=== PATIENT | female | born 1965 | race Caucasian/White ===

== ENCOUNTER 2021-07-07 14:08 | Emergency (ER) | payer BC ==
[~2021-07-07] VITALS: Ht 172.7 cm; Wt 57.6 kg
[~2021-07-07 14:08] MED LIST: AMLO-186 PO; BISA10SU55 RC; HYDR12.58 PO; Hydrocodone Bit/Acetaminophen PO; LEVO88TA70 PO
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
[2021-07-07 17:26] VITALS: BP 142/70
== END 2021-07-07 17:26 | disposition home or self-care (01) ==
LOC: ER 14:08
DX: R13.10 Dysphagia, unspecified (principal); F17.200 Nicotine dependence, unspecified, uncomplicated; Z88.5 Allergy status to narcotic agent; Z88.0 Allergy status to penicillin; Z91.013 Allergy to seafood; Z91.040 Latex allergy status; Z88.8 Allergy status to other drugs, medicaments and biological substances
CPT/HCPCS: 99281

== ENCOUNTER → 2022-02-13 | Outpatient (CLI) | payer OTHER, BC ==
--- NOTE | 2022-02-13 10:44 | KCIC ---
MR LUMBAR SPINE [id number] Date: 02/13/2022 8:50 AM Indication: LOWER BACK PAIN. LBP, right side since a fall on the ice 12/30/21. Comparison: Radiograph 01/02/2022. Technique: Multi-planar multi-weighted magnetic resonance imaging of the lumbar spine was performed w ithout intravenous contrast using the standard lumbar spine protocol. FINDINGS: T12 compression deformity with 10 percent loss of vertebral body height. Edema and fracture cleft taty ng the superior endplate. Mild osseous retropulsion. No spinal canal stenosis. The lumbar spine is normally aligned. Mild multilevel degenerative disc desiccation and disc height l oss. No marrow replacing process to suggest malignancy. The conus terminates at a normal level. No abnormal signal is seen within the visualized distal spina l cord. No clumping of intrathecal nerve roots. No soft tissue abnormality in the visualized abdomen or pelvis. T12-L1: No disc bulge. No facet arthropathy. No significant spinal stenosis or neural foraminal narro wing. L1-L2: Disc bulge. Mild facet arthropathy. No significant spinal stenosis or neural foraminal narrowi ng. L2-L3: Disc bulge. Mild facet arthropathy. No significant spinal stenosis or neural foraminal narrowi ng. L3-L4: Disc bulge. Mild facet arthropathy. No significant spinal stenosis. Mild right neural foramina l narrowing. L4-L5: Disc bulge with annular tear. Mild facet arthropathy. No significant spinal stenosis or neural foraminal narrowing. L5-S1: Disc bulge with far lateral protrusions. Mild facet arthropathy. No significant spinal stenosi s. Mild bilateral neural foraminal narrowing. IMPRESSION: 1. Acute to subacute T12 compression deformity with 10 percent vertebral body height loss and mild os seous retropulsion. No significant spinal canal stenosis. 2. Mild lumbar spondylosis, detailed level by level above. Electronically signed by: Ad Calderon MD (02/13/2022 10:41 AM) [id number]
== END ==
LOC: KCIC MRI 08:28
PROVIDERS: ATTEND Family Medicine
DX: M47.816 Spondylosis without myelopathy or radiculopathy, lumbar region (principal); M48.07 Spinal stenosis, lumbosacral region; M51.27 Other intervertebral disc displacement, lumbosacral region; M48.8X7 Other specified spondylopathies, lumbosacral region; M43.8X4 Other specified deforming dorsopathies, thoracic region; R60.0 Localized edema; M51.36 Other intervertebral disc degeneration, lumbar region; W00.9XXD Unspecified fall due to ice and snow, subsequent encounter
CPT/HCPCS: 72148